=== PATIENT | female | born 1990 | race Caucasian/White ===

== ENCOUNTER 2021-10-25 15:55 | Emergency (ER) | payer MEDICAID ==
[~2021-10-25] VITALS: Ht 165.1 cm; Wt 78.0 kg
[2021-10-25 17:45] LABS: BASOPHILS % 0.6 % (0.0-2.0); EOSINOPHILS % 1.7 % (0.0-5.0); HEMATOCRIT. 38.9 % (36.0-48.0); HEMOGLOBIN. 12.8 g/dL (12.0-16.0); LYMPHOCYTES % 31.2 % (20.0-50.0); MEAN CORPUSCULAR VOLUME 90.8 fL (81.0-99.0); MEAN PLATELET VOLUME 8.4 fl (7.4-10.4); MONOCYTES % 5.4 % (2.0-8.0); NEUTROPHILS % 61.1 % (40.0-76.0); PLATELET 312 x1000/uL (130-400); RED BLOOD CELL COUNT 4.28 mill/uL (4.2-5.4); RED CELL DISTRIBUTION WIDTH 15.1 % (11.6-14.6)
[2021-10-25 17:53] LABS: HCG SCREEN NEGATIVE
[2021-10-25 18:00] LABS: CHLORIDE 114 mEq/L (98-107)
[2021-10-25] MEDS ORDERED: LIDOCAINE 5% PATCH TOP SCH (18:15)
[2021-10-25] MEDS ORDERED: KETOROLAC 15MG/ML VIAL IM ONE (18:15)
[2021-10-25 21:53] VITALS: BP 144/69
== END 2021-10-25 21:57 | disposition home or self-care (01) ==
LOC: ER 15:55
DX: M79.662 Pain in left lower leg (principal); R20.2 Paresthesia of skin
CPT/HCPCS: 36415; 70450; 80053; 84703; 85025; 96372; 99284; J1885